=== PATIENT | male | born 1985 | race Two or more races ===

== ENCOUNTER 2016-11-26 21:36 | Emergency (ER) | payer OTHER ==
[~2016-11-26] VITALS: Ht 180.3 cm; Wt 95.3 kg
[2016-11-26 22:00] VITALS: BP 101/59
--- NOTE | 2016-11-26 22:26 | Emergency Room Report ---
History of Present Illness General Chief Complaint: Wound Recheck/Suture Removal Source: Patient Present Illness HPI The patient is concerned that a cut he sustained on his leg is infected. This happened 4 days ago. He's been refusing to come in to get stitches. 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 There is a blister above the cut that hurts more than the cut itself from a band aid. He denies pain. States tetanus UTD. No fevers. No drainage from wound. No swelling. No other somatic complaints. Allergies: Coded Allergies: No Known Allergies (Unverified , 11/26/16) Patient History Past Medical History: see triage record Social History: Denies: smoking Social History Narrative works for [employer] Reviewed Nursing Documentation: PMH: Agreed, PSxH: Agreed Nursing Documentation-PMH Past Medical History: No Stated History Review of Systems All Other Systems: negative except mentioned in HPI Physical Exam Vital Signs Date Time Temp Pulse Resp B/P (MAP) Pulse Ox O2 Delivery O2 Flow Rate FiO2 11/26/16 21:41 98.4 66 18 101/59 98 Room Air Sp02 EP Interpretation: reviewed, normal General Appearance: well appearing, no apparent distress Head: normocephalic, atraumatic Eyes: bilateral eye normal inspection, bilateral eye PERRL ENT: hearing grossly normal, normal voice, moist mucus membranes Neck: full range of motion, supple Respiratory: no respiratory distress, speaking full sentences Cardiovascular #1: regular rate, rhythm, no edema Cardiovascular #2: 2+ radial (R) Gastrointestinal: normal inspection Musculoskeletal: digits/nails normal, gait/station normal, normal range of motion, no calf tenderness Neurologic: alert, normal gait, grossly normal Psychiatric: mood/affect normal Skin: warm/dry, laceration - R lower leg = 4 cm, into SQ tissues, no FB seen, areal of blistering and erythema above Medical Decision Making Diagnostic Impression: Primary Impression: Late presentation laceration Additional Impression: Leg laceration Qualified Codes: S81.811A - Laceration without foreign body, right lower leg, initial encounter ER Course The patient presents with laceration to his right lower leg. This happened 4 days ago. This is beyond the time that we can do a primary closure. The patient will be covered with antibiotics. Above the wound looks like there is early infection there where the band aid was. He is be treated antibiotics and antibiotic ointment. He declines pain medicine. Discussed possibility of late secondary closure after taking antibiotics 2 days. Patient stable for outpatient observation and treatment. Last Vital Signs Date Time Temp Pulse Resp B/P (MAP) Pulse Ox O2 Delivery O2 Flow Rate FiO2 11/26/16 23:36 98.4 72 18 109/65 98 Room Air Status: improved Disposition: HOME, SELF-CARE Condition: Improved Scripts Trimethoprim/Sulfamethoxazole 160/800* (BACTRIM DS TABLET*) 1 Each Tablet 1 TAB ORAL Q12H, #14 TAB 0 Refills Prov: Sammy Gonzalez M.D. 11/26/16 Bacitracin (Bacitracin) 28.4 Gm Oint...g. 1 APPLIC TOPIC BID, #14 GM Prov: Sammy Gonzalez M.D. 11/26/16 Sammy Gonzalez M.D. Nov 26, 2016 22:26
[2016-11-26] MEDS ORDERED: Bactrim DS (160mg/800mg) tab ORAL ONE (22:30)
[2016-11-26] MEDS ORDERED: Bacitracin Oint UD TOPIC ONE (22:30)
[2016-11-26] MEDS ORDERED: BACITRACIN15 GM TOPIC (22:42)
[2016-11-26] MEDS ORDERED: BACTRIM DS TAB1 EAC1 ORAL (22:42)
[2016-11-26 23:25] VITALS: BP 109/65
[2016-11-26 23:36] VITALS: BP 109/65
== END 2016-11-26 23:36 | disposition home or self-care (01) ==
LOC: EMR 22:30
DX: S81.811D Laceration without foreign body, right lower leg, subsequent encounter (principal); X58.XXXD Exposure to other specified factors, subsequent encounter; L08.9 Local infection of the skin and subcutaneous tissue, unspecified
CPT/HCPCS: 99284